=== PATIENT | female | born 1955 | race Caucasian/White ===

== ENCOUNTER 2024-12-04 14:22 | Emergency (ER) | payer MEDICARE, BC ==
[~2024-12-04] VITALS: Ht 160 cm; Wt 58.5 kg
[2024-12-04] MEDS ORDERED: MORPHINE SULFATE INJ 4 MG/ML DISP.SYRIN ONE (14:52)
[2024-12-04] MEDS: MORPHINE SULFATE INJ 2 MG/ML DISP.SYRIN IM ONE (15:03)
[2024-12-04] MEDS ORDERED: HYDROMORPHONE 1 MG/1 ML DISP.SYRIN ONE (16:32)
[2024-12-04] MEDS: HYDROMORPHONE 1 MG/1 ML DISP.SYRIN IM ONE (16:37)
[2024-12-04] MEDS ORDERED: KETO10TA2 PO (18:11)
[2024-12-04] MEDS ORDERED: HYDR-4209 PO (18:11)
[2024-12-04] MEDS ORDERED: ONDA4TAB11 PO (18:11)
[2024-12-04] MEDS ORDERED: ONDANSETRON 4 MG TAB.RAPDIS ONE (18:26)
[2024-12-04] MEDS: ONDANSETRON 4 MG TAB.RAPDIS SL ONE (18:28)
[2024-12-04 18:40] VITALS: BP 134/86; TEMP 98.6; O2SAT 97
== END 2024-12-04 18:41 | disposition home or self-care (01) ==
LOC: ER 14:33
DX: S42.251A Displaced fracture of greater tuberosity of right humerus, initial encounter for closed fracture (principal); Z88.1 Allergy status to other antibiotic agents; Z88.2 Allergy status to sulfonamides; W01.0XXA Fall on same level from slipping, tripping and stumbling without subsequent striking against object, initial encounter; Y93.89 Activity, other specified; Y92.89 Other specified places as the place of occurrence of the external cause; Y99.8 Other external cause status
CPT/HCPCS: 99285; 73200; 96372 ×2; 73030; J1171; J2270; Q0162